=== PATIENT | male | born 1970 | race Caucasian/White ===

== ENCOUNTER 2018-03-22 21:08 | Emergency (ER) | payer OTHER ==
[~2018-03-22] VITALS: Ht 172.7 cm; Wt 73.9 kg
[~2018-03-22 21:08] MED LIST: NAPROSYN500 MG PO; NORCO 7.5/321 TABLET PO
[2018-03-22 21:18] VITALS: BP 154/98
== END 2018-03-22 23:49 | disposition left against medical advice (07) ==
LOC: EME 21:08
DX: M54.9 Dorsalgia, unspecified (principal); Z53.21 Procedure and treatment not carried out due to patient leaving prior to being seen by health care provider